=== PATIENT | male | born 1965 | race Caucasian/White ===

== ENCOUNTER 2016-06-17 11:16 | Emergency (ER) | payer BC ==
[~2016-06-17] VITALS: Ht 172.7 cm; Wt 104.8 kg
[~2016-06-17 11:16] MED LIST: FLOMAX0.4 MG PO; PERCOCET 5/31 TABLET PO
[2016-06-17 12:43] LABS: HEMATOCRIT 42.7 % (38.0-50.0); MCH 30.4 PG (29.0-34.0); MCHC 34.4 G/DL (30.0-36.0); MCV 88.4 FL (86-99); MEAN PLAT.VOLUME 9.9 uM^3 (9.0-12.4); PLATELET COUNT 242 K/uL (156-360); RBC DIS.WIDTH-SD 41.3 % (39-53); RED BLOOD COUNT 4.83 M/uL (4.00-5.50); WHITE BLOOD COUNT 6.4 K/uL (4.1-10.2)
[2016-06-17 13:01] LABS: CHLORIDE 104 mEq/L (99-109); POTASSIUM 4.2 mEq/L (3.7-5.4); SODIUM 135 mEq/L (136-147)
[2016-06-17 13:03] LABS: GLUCOSE 101 mg/dL (70-99)
[2016-06-17 13:04] LABS: ANION GAP 10 MEQ/L (2-14)
[2016-06-17 13:07] LABS: GFR ESTIMATE (CALCULATED) > 59 mL/min/; UREA NITROGEN (BUN) 23 mg/dL (9-23)
[2016-06-17 13:07] LABS: ADD MIUA? NO; BILIRUBIN NEGATIVE; BLOOD NEGATIVE; COLOR YELLOW ((YELLOW)); GLUCOSE (STRIP) NEGATIVE; KETONES NEGATIVE; LEUKOCYTES NEGATIVE; NITRITE NEGATIVE; PROTEIN (STRIP) NEGATIVE; SPECIFIC GRAVITY 1.022 (1.000-1.030); UCUL ADDED? NO; UROBILINOGEN 0.2 MG/DL (0.2-1.0)
[2016-06-17 14:33] LABS: TOTAL BILIRUBIN 0.4 mg/dL (0.0-1.0)
[2016-06-17 14:34] LABS: ALKALINE PHOSPHATASE 58 IU/L (3-129)
[2016-06-17 14:37] LABS: DIRECT BILIRUBIN 0.2 mg/dL (0.0-0.3)
[2016-06-17 14:38] LABS: LIPASE 53 U/L (1.0-51.0)
[2016-06-17] MEDS ORDERED: TRULICITY1.5 MG/0.5 SC (14:51)
[2016-06-17] MEDS ORDERED: LEVOTHYROXINE137 MCG PO (14:52)
[2016-06-17] MEDS ORDERED: METFORMIN HCL1000 MG PO (14:52)
[2016-06-17] MEDS ORDERED: TESTOSTERO200 MG/12 IM (14:52)
[2016-06-17] MEDS ORDERED: LISINOPRIL5 MG PO (14:52)
[2016-06-17] MEDS ORDERED: FENOFIBRATE145 M1 PO (14:53)
[2016-06-17] MEDS ORDERED: INDOCIN25 MG PO (16:45)
[2016-06-17 17:10] VITALS: BP 126/75
== END 2016-06-17 17:13 | disposition home or self-care (01) ==
LOC: EME 11:16
DX: K76.0 Fatty (change of) liver, not elsewhere classified (principal); R94.5 Abnormal results of liver function studies; E11.9 Type 2 diabetes mellitus without complications; Z79.4 Long term (current) use of insulin; Z87.442 Personal history of urinary calculi
CPT/HCPCS: 74176; 80048; 80076; 81003; 83690; 85027; 99281; 99285; J1885

== ENCOUNTER → 2017-04-09 | Outpatient (CLI) | payer BC ==
[~2017-04-09] MED LIST changes: +FENOFIBRATE145 M1 PO; +INDOCIN25 MG PO; +LEVOTHYROXINE137 MCG PO; +LISINOPRIL5 MG PO; +METFORMIN HCL1000 MG PO; +TESTOSTERO200 MG/12 IM; +TRULICITY1.5 MG/0.5 SC
== END | disposition home or self-care (01) ==
LOC: NUC 08:52
DX: R10.11 Right upper quadrant pain (principal); K76.0 Fatty (change of) liver, not elsewhere classified; E66.01 Morbid (severe) obesity due to excess calories; Z83.71 Family history of colonic polyps
CPT/HCPCS: 78226; A9537